=== PATIENT | female | born 1995 | race Caucasian/White ===

== ENCOUNTER 2019-03-05 11:05 | Outpatient (CLI) | payer BC | END 2019-03-05 11:06 | disposition home or self-care (01) | LOC: DTY/OP 11:05 | PROVIDERS: ATTEND Family Medicine | DX: Z68.43 Body mass index [BMI] 50.0-59.9, adult (principal) | CPT/HCPCS: 97802 ==

== ENCOUNTER → 2023-06-02 | Day surgery (SDC) | payer BC | LOC: BICRAD 13:05 | PROVIDERS: ATTEND Internal Medicine | DX: S61.251A Open bite of left index finger without damage to nail, initial encounter (principal); W53.11XA Bitten by rat, initial encounter ==